=== PATIENT | male | born 1955 | race Caucasian/White ===

== ENCOUNTER 2017-08-06 09:56 | Emergency (ER) | payer BC ==
[~2017-08-06] VITALS: Ht 177.8 cm; Wt 98.9 kg
[2017-08-06 09:56] VITALS: BP_SYST 185
--- NOTE | 2017-08-06 09:56 | NUR ---
Placed in room 1 . 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 To gown for exam. Side rails up. Triaged at bedside by Irma PAEZ. Report given to Breanna PAEZ.
--- NOTE | 2017-08-06 09:56 | NUR ---
BROUGHT IMMEDIATELY BACK TO BED #1 AND TRIAGED. REPORT GIVEN TO IVANA
--- NOTE | 2017-08-06 10:12 | NUR ---
Pt went to radiology in stable condition.
--- NOTE | 2017-08-06 10:22 | NUR ---
Pt returned from radiology in stable condition.
[2017-08-06] MEDS: methylPREDNISolone SOD SUCC/PF 62.5 MG/ML VIAL IM ONE (10:32)
--- NOTE | 2017-08-06 11:06 | NUR ---
Patient given written and verbal discharge instructions and verbalizes understanding. ER MD discussed with patient the results and treatment provided. Patient in stable condition. ID arm band removed. Rx of Acyclovir, prednisone given. Patient educated on pain management and to follow up with PMD. Pain Scale 0/10. Opportunity for questions provided and answered.
[2017-08-06 11:07] VITALS: BP_SYST 153
== END 2017-08-06 11:07 | disposition home or self-care (01) ==
LOC: SED 09:56
DX: G51.0 Bell's palsy (principal); I10 Essential (primary) hypertension; E11.9 Type 2 diabetes mellitus without complications; E78.00 Pure hypercholesterolemia, unspecified
CPT/HCPCS: 70450; 96372; 99284; J2930

== ENCOUNTER 2017-11-11 07:32 | Emergency (ER) | payer BC ==
[~2017-11-11] VITALS: Ht 177.8 cm; Wt 96.6 kg
[2017-11-11 07:38] VITALS: BP_SYST 163
[2017-11-11] MEDS ORDERED: NACL 0.9% 1,000 ML IV ONE (07:39)
[2017-11-11] MEDS ORDERED: ASPIRIN 81 MG TAB.CHEW PO ONE (07:45)
[2017-11-11 07:58] LABS: BASOPHILS % (AUTO) 0.4 % (0.0-2.0); EOSINOPHILS # (AUTO) 0.2 K/uL (0.0-0.4); EOSINOPHILS % (AUTO) 1.6 % (0.0-4.0); HEMATOCRIT 38.3 % (36-54); HEMOGLOBIN 12.8 g/dL (14.0-18.0); LYMPHOCYTES # (AUTO) 0.8 K/uL (1.0-5.5); LYMPHOCYTES % (AUTO) 7.8 % (20.5-51.5); MEAN CORPUSCULAR HEMOGLOBIN 29 pg (27-31); MEAN CORPUSCULAR HGB CONC 33 % (32-36); MEAN CORPUSCULAR VOLUME 87 fL (79.0-98.0); MONOCYTES % (AUTO) 9.2 % (1.7-9.3); NEUTROPHILS # (AUTO) 8.5 K/uL (1.8-7.7); PLATELET COUNT (AUTO) 234 K/uL (130-430); RED BLOOD CELL COUNT(AUTO) 4.39 MIL/uL (4.2-6.2); RED CELL DISTRIBUTION WIDTH 12.2 % (9.0-15.0); WHITE BLOOD COUNT (AUTO) 10.5 K/uL (4.8-10.8)
[2017-11-11] MEDS ORDERED: FENO160 PO (08:21)
[2017-11-11] MEDS ORDERED: GLIP-195 PO (08:21)
[2017-11-11] MEDS ORDERED: LIP40 PO (08:21)
[2017-11-11] MEDS ORDERED: GLU500 PO (08:21)
[2017-11-11] MEDS ORDERED: ALLO100T PO (08:21)
[2017-11-11] MEDS ORDERED: LISI40TA4 PO (08:21)
[2017-11-11] MEDS ORDERED: PRO20 PO (08:21)
[2017-11-11] MEDS ORDERED: AMLO5TAB4 PO (08:21)
[2017-11-11 08:23] LABS: POTASSIUM 4.1 mmol/L (3.5-5.1); SODIUM SERUM 134 mmol/L (136-145)
[2017-11-11 08:24] LABS: ALBUMIN 3.4 g/dL (3.4-4.8); ANION GAP 7 (5-15); CHLORIDE 102 mmol/L (98-107); CREATININE 0.96 mg/dL (0.55-1.30); GFR AFRICAN AMERICAN 102 mL/min (>90); GLUCOSE 221 mg/dL (70-99); UREA NITROGEN, BLOOD 15 mg/dL (8-21)
[2017-11-11 08:37] LABS: ALANINE AMINOTRANSFERASE 27 U/L (12-78); ASPARTATE AMINOTRANSFERASE 15 U/L (10-37); TOTAL BILIRUBIN 0.8 mg/dL (0.0-1.0)
[2017-11-11] MEDS ORDERED: KETOROLAC TROMETHAMINE 30 MG VIAL IVP ONE (09:00)
[2017-11-11] MEDS ORDERED: NITROGLYCERIN 1 INCH (GM) OINT. TP ONE (09:00)
[2017-11-11 10:50] VITALS: BP_SYST 150
== END 2017-11-11 10:50 | disposition left against medical advice (07) ==
LOC: SED 07:32 → UNDOADMIN 09:36 → STU 09:36 → SED 10:50
DX: M25.50 Pain in unspecified joint (principal); R07.89 Other chest pain; I10 Essential (primary) hypertension; E11.9 Type 2 diabetes mellitus without complications; E78.00 Pure hypercholesterolemia, unspecified; Z79.899 Other long term (current) drug therapy
CPT/HCPCS: 36415; 71045; 80053; 84484; 85025; 85379; 93005; 96361; 96374; 99285; J1885; J7030

== ENCOUNTER 2018-11-01 11:25 | Emergency (ER) | payer BC ==
[~2018-11-01] VITALS: Ht 177.8 cm; Wt 93.0 kg
[~2018-11-01 11:25] MED LIST: ALLO100T PO; AMLO5TAB4 PO; FENO160 PO; GLIP5TAB26 PO; GLU500 PO; LIP40 PO; LISI40TA4 PO; PRO20 PO
[2018-11-01 11:30] VITALS: BP_SYST 144
[2018-11-01] MEDS ORDERED: NACL 0.9% 1,000 ML IV ONE (11:39)
[2018-11-01] MEDS ORDERED: MORPHINE 4 MG/ML INJ. SYRINGE IVP ONE (11:45)
[2018-11-01] MEDS ORDERED: ONDANSETRON HCL 4 MG/2 ML VIAL IVP ONE (11:45)
[2018-11-01 12:10] LABS: BASOPHILS % (AUTO) 0.4 % (0.0-2.0); EOSINOPHILS # (AUTO) 0.1 K/uL (0.0-0.4); EOSINOPHILS % (AUTO) 1.5 % (0.0-4.0); HEMATOCRIT 40.9 % (36-54); HEMOGLOBIN 13.7 g/dL (14.0-18.0); MEAN CORPUSCULAR HEMOGLOBIN 29 pg (27-31); MEAN CORPUSCULAR HGB CONC 34 % (32-36); MEAN CORPUSCULAR VOLUME 86 fL (79.0-98.0); MONOCYTES # (AUTO) 0.4 K/uL (0.0-1.0); MONOCYTES % (AUTO) 7.5 % (1.7-9.3); NEUTROPHILS # (AUTO) 4.4 K/uL (1.8-7.7); NEUTROPHILS % (AUTO) 74.6 % (40.0-70.0); PLATELET COUNT (AUTO) 227 K/uL (130-430); RED BLOOD CELL COUNT(AUTO) 4.75 MIL/uL (4.2-6.2); RED CELL DISTRIBUTION WIDTH 13.4 % (9.0-15.0)
[2018-11-01 12:15] LABS: CALCIUM 9.5 mg/dL (8.4-11.0); CREATININE 1.11 mg/dL (0.55-1.30); POTASSIUM 4.1 mmol/L (3.5-5.1)
[2018-11-01 12:19] LABS: INR 0.9 (0.80-1.20); PROTHROMBIN TIME 9.7 SECS (9.5-12.5)
[2018-11-01 12:20] LABS: ALBUMIN 3.8 g/dL (3.4-4.8); TOTAL BILIRUBIN 0.9 mg/dL (0.0-1.0)
[2018-11-01 13:50] VITALS: BP_SYST 124
== END 2018-11-01 13:50 | disposition home or self-care (01) ==
LOC: SED 11:25
DX: S20.212A Contusion of left front wall of thorax, initial encounter (principal); Z87.19 Personal history of other diseases of the digestive system; E11.9 Type 2 diabetes mellitus without complications; I10 Essential (primary) hypertension; E78.00 Pure hypercholesterolemia, unspecified; Z79.899 Other long term (current) drug therapy; V28.0XXA Motorcycle driver injured in noncollision transport accident in nontraffic accident, initial encounter; Y93.55 Activity, bike riding; Y92.481 Parking lot as the place of occurrence of the external cause; Y99.8 Other external cause status
CPT/HCPCS: 36415; 71045; 71250; 74176; 80053; 82150; 82550; 83690; 84484; 85025; 85610; 85730; 93005; 99284; J7030; J2270; J2405

== ENCOUNTER 2020-10-16 14:36 | Emergency (ER) | payer BC, OTHER ==
[~2020-10-16] VITALS: Ht 177.8 cm; Wt 94.3 kg
[~2020-10-16 14:36] MED LIST changes: +LISI40TA13 PO; -LISI40TA4 PO
[2020-10-16 14:53] VITALS: BP_SYST 137
== END 2020-10-16 15:06 | disposition home or self-care (01) ==
LOC: SED 14:36
DX: K42.9 Umbilical hernia without obstruction or gangrene (principal); I10 Essential (primary) hypertension; E11.9 Type 2 diabetes mellitus without complications; E78.00 Pure hypercholesterolemia, unspecified; Z79.84 Long term (current) use of oral hypoglycemic drugs; Z79.899 Other long term (current) drug therapy
CPT/HCPCS: 99281

== ENCOUNTER 2024-05-22 21:35 | Emergency (ER) | payer OTHER ==
[~2024-05-22] VITALS: Ht 177.8 cm; Wt 98.9 kg
[2024-05-22 22:02] VITALS: BP_SYST 155; PULSE 65; RESP 18; TEMP 98.1; O2SAT 100
[2024-05-23 01:00] VITALS: BP_SYST 148; PULSE 72; RESP 18; TEMP 98.1; O2SAT 100
== END 2024-05-23 01:00 | disposition home or self-care (01) ==
LOC: SED 21:35
DX: S61.412A Laceration without foreign body of left hand, initial encounter (principal); E11.9 Type 2 diabetes mellitus without complications; I10 Essential (primary) hypertension; E78.00 Pure hypercholesterolemia, unspecified; Z79.84 Long term (current) use of oral hypoglycemic drugs; Z79.899 Other long term (current) drug therapy; W25.XXXA Contact with sharp glass, initial encounter; Y93.89 Activity, other specified; Y92.89 Other specified places as the place of occurrence of the external cause; Y99.8 Other external cause status
CPT/HCPCS: 99283